=== PATIENT | male | born 1990 | race Caucasian/White ===

== ENCOUNTER 2017-08-15 10:15 | Emergency (ER) | payer MEDICAID ==
[~2017-08-15] VITALS: Ht 165.1 cm; Wt 83.0 kg
[~2017-08-15 10:15] MED LIST: ABAC1TAB14 PO
[2017-08-15 10:16] VITALS: BP 126/85
== END 2017-08-15 12:14 | disposition home or self-care (01) ==
LOC: ED 12:05
DX: J03.00 Acute streptococcal tonsillitis, unspecified (principal)
CPT/HCPCS: 71046; 87081; 87880; 99285

== ENCOUNTER 2020-11-25 21:41 | Emergency (ER) | payer MEDICAID ==
[~2020-11-25] VITALS: Ht 165.1 cm; Wt 89.2 kg
[2020-11-26] MEDS ORDERED: IBUPROFEN 200 MG TABLET PO ONE (00:30)
[2020-11-26] MEDS ORDERED: DEXAMETHASONE 4 MG TABLET PO ONE (00:30)
[2020-11-26] MEDS ORDERED: DEXAMETHASONE 4 MG TABLET ONE (00:31)
[2020-11-26] MEDS ORDERED: IBUPROFEN 600 MG TABLET ONE (00:32)
[2020-11-26 00:51] VITALS: BP 139/82
--- NOTE | 2020-11-26 00:52 | NUR ---
D/C HOME AFTER REVIEW OF TESTING, SXS TO WATCH FOR, HOW TO MEDICATE, TO EXPECT CALL FROM US IF SWAB CULTURE HAS PATHOGEN. TEACH BACK SUCCESSFUL
== END 2020-11-26 00:54 | disposition home or self-care (01) ==
LOC: ED 23:50
DX: J02.8 Acute pharyngitis due to other specified organisms (principal); B97.89 Other viral agents as the cause of diseases classified elsewhere; R05 Cough; Z21 Asymptomatic human immunodeficiency virus [HIV] infection status
CPT/HCPCS: 71045; 87081; 87880; 99284